=== PATIENT | male | born 1975 | race Caucasian/White ===

== ENCOUNTER 2016-09-05 08:11 | Emergency (ER) | payer OTHER ==
[~2016-09-05] VITALS: Wt 122.4 kg
[~2016-09-05 08:11] MED LIST: CYCL-319 PO; HYDR-3498 PO; HYDR-762 PO; IBUP800T25 PO; NAPR-260 PO
[2016-09-05] MEDS ORDERED: ERYTOPOI LEFT EYE (08:37)
--- NOTE | 2016-09-05 08:42 | ERD ---
ER Documentation Chief Complaint Date/Time DATE: 09/05/16 TIME: 08:39 Chief Complaint LEFT EYE SWELLING AND REDNESS FOR THE PAST 24 HRS. NO DISTRESS HPI This is a 41-year-old male presenting to the emergency department complaining of left lower eyelid swelling and redness for the past day. Patient states that last night he started feeling pain when he would press under his left lower eyelid. Patient rates the pain minimal with touch. Patient states that he sees a bump inside his left lower eyelid. Patient denies any vision changes , significant pain, foreign body. ROS All systems reviewed and are negative except as per history of present illness. Medications Home Meds Active Scripts Erythromycin* (Erythromycin* Ophthalmic) 1 Applic Oint, 1 APPLIC LEFT EYE QID for 7 Days, EA Prov:JENNY BRASHER PA-C 09/05/16 Ibuprofen* (Motrin*) 800 Mg Tab, 800 MG PO Q6H Y for PAIN AND OR ELEVATED TEMP, #30 TAB Prov:SARBJIT HERNÁNDEZ MD 10/29/15 Naproxen* (Naprosyn*) 500 Mg Tablet, 500 MG PO BID Y for PAIN AND/OR INFLAMMATION, #30 TAB Prov:ALEX MEDEROS PA-C 08/19/15 Cyclobenzaprine Hcl* (Cyclobenzaprine Hcl*) 10 Mg Tablet, 10 MG PO TID, #15 TAB Prov:ALEX MEDEROS PA-C 08/19/15 Hydrocodone Bit-Acetaminophen* ([place]*) 10-325 Mg Tablet, 1 TAB PO Q6 Y for PAIN , #10 TAB Prov:ALEX MEDEROS PA-C 08/19/15 Hydrocodone Bit-Acetaminophen* ([place]*) 5-325 Mg Tab, 1 TAB PO Q6 Y for PAIN, # 30 TAB Prov:GIANNA TRAVIS DO 06/20/15 Ibuprofen* (Motrin*) 800 Mg Tab, 800 MG PO Q6H Y for PAIN AND OR ELEVATED TEMP, #30 TAB Prov:GIANNA TRAVIS DO 06/20/15 Allergies Allergies: Coded Allergies: No Known Allergy (Unverified , 10/29/15) PMhx/Soc History of Surgery: No Anesthesia Reaction: No Hx Neurological Disorder: No Hx Respiratory Disorders: No Hx Cardiac Disorders: No Hx Psychiatric Problems: No Hx Miscellaneous Medical Probl: No Hx Alcohol Use: Yes (occassional) Hx Substance Use: No Hx Tobacco Use: Yes Physical Exam Vitals Vital Signs Date Time Temp Pulse Resp B/P Pulse Ox O2 Delivery O2 Flow Rate FiO2 09/05/16 08:13 98.5 81 20 170/89 97 Physical Exam General: WD/WN, in no apparent distress, non-toxic appearing HENT: NC/AT EYES: Left lower eyelid mild swelling, papules noted in the left or right eyelid Conjunctiva normal, no icterus Extraocular muscles intact, pupils equal and reactive to light with consensual response Negative Gosia test NECK: Supple; no LAD PULM: Normal labored breathing CV: RRR Good capillary refill GI: Non-distended, no guarding BACK: No masses EXT: No clubbing, cyanosis, or edema NEURO: Moves on all fours SKIN: intact PSYCH: Normal mood Procedures/MDM This is a 41-year-old male presenting to the emergency room complaining of left lower eyelid swelling and redness for the past day. On examination patient had left lower eyelid blepharitis with a small stye noted. There was no evidence of periorbital cellulitis, orbital cellulitis,corneal abrasion, corneal ulcer, glaucoma, anterior uveitis, and other ophthalmologic emergencies. I discussed with patient to do warm compresses 3 times a day and a prescription for erythromycin ointment was given. I discussed to follow-up with an checkroom chief within couple days DISPOSITION: Stable. Prescriptions given. Discussed to return to the ER if condition worsens or not improving as expected. Patient understoon and agreed with this plan. Departure Diagnosis: Primary Impression: Blepharitis Blepharitis type: unspecified type Laterality: left Eyelid: lower Qualified Code: H01.005 - Blepharitis of left lower eyelid, unspecified type Additional Impression: Stye Laterality: left Eyelid: lower Qualified Code: H00.015 - Hordeolum externum of left lower eyelid Condition: Stable Patient Instructions: What Is Blepharitis?, Treating Blepharitis: Self-Care, Treating Blepharitis: Medication and Follow-Up, When Your Child Has a Stye, Blepharitis Additional Instructions: FOLLOW UP WITH YOUR PRIMARY CARE PHYSICIAN TOMORROW.Return to this facility if you are not improving as expected. Take all medicines as directed. Return to this facility if you are not improving as expected. JENNY BRASHER PA-C Sep 05, 2016 08:42
== END 2016-09-05 09:13 | disposition home or self-care (01) ==
LOC: FTE 08:11
DX: H01.005 Unspecified blepharitis left lower eyelid (principal); H00.015 Hordeolum externum left lower eyelid; Z87.891 Personal history of nicotine dependence
CPT/HCPCS: 99283

== ENCOUNTER 2016-11-16 11:53 | Emergency (ER) | payer OTHER ==
[~2016-11-16] VITALS: Ht 162.6 cm; Wt 126.5 kg
[~2016-11-16 11:53] MED LIST changes: +ERYTOPOI LEFT EYE
[2016-11-16 11:54] VITALS: Ht 162.6 cm; Wt 126.5 kg
[2016-11-16 12:27] VITALS: BP 171/97
[2016-11-16] MEDS ORDERED: IBUPROFEN 800 MG TAB PO ONE (13:30)
--- NOTE | 2016-11-16 14:09 | RADRPT ---
PROCEDURE: XR Left Shoulder. CLINICAL INDICATION: Left shoulder pain. TECHNIQUE: Three views. Frontal internal rotation, frontal external rotation, and scapular Y-view . COMPARISON: No prior study is available for comparison. FINDINGS: There is no fracture or dislocation. The soft tissues are normal. Articular surfaces are intact. There is no lytic or blastic lesion. There is no radiopaque foreign body. IMPRESSION: 1. Normal images of the left shoulder. RPTAT: QQ .Jose Kern MD, MD Date Time Electronically viewed and signed by .Jose Kern MD, MD on 11/16/2016 14:09 .R/
--- NOTE | 2016-11-16 14:25 | ERD ---
ER Documentation Chief Complaint Date/Time DATE: 11/16/16 TIME: 14:23 Chief Complaint shoulder pain HPI This a 41-year-old male who presents the emergency department today complaining of left shoulder pain for the past 3-4 months. States that he has pain when he sleeps at night and when he "works out". 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 States he does not want to see his primary care doctor because "they do not do anything for him". States he wants a CT or MRI. Denies any fevers or chills. Denies any specific trauma. States he has not taken any medication for the pain. ROS All systems reviewed and are negative except as per history of present illness. Medications Home Meds Active Scripts Acetaminophen* (Tylophen*) 500 Mg Capsule, 1 CAP PO Q6H Y for PAIN AND OR ELEVATED TEMP, #30 CAP Prov:ANGELO GRAVES PA-C 11/16/16 Naproxen* (Naprosyn*) 500 Mg Tablet, 500 MG PO BID Y for PAIN AND/OR INFLAMMATION, #30 TAB Prov:ANGELO GRAVES PA-C 11/16/16 Erythromycin* (Erythromycin* Ophthalmic) 1 Applic Oint, 1 APPLIC LEFT EYE QID for 7 Days, EA Prov:JENNY BRASHER PA-C 09/05/16 Ibuprofen* (Motrin*) 800 Mg Tab, 800 MG PO Q6H Y for PAIN AND OR ELEVATED TEMP, #30 TAB Prov:SARBJIT HERNÁNDEZ MD 10/29/15 Naproxen* (Naprosyn*) 500 Mg Tablet, 500 MG PO BID Y for PAIN AND/OR INFLAMMATION, #30 TAB Prov:ALEX MEDEROS PA-C 08/19/15 Cyclobenzaprine Hcl* (Cyclobenzaprine Hcl*) 10 Mg Tablet, 10 MG PO TID, #15 TAB Prov:ALEX MEDEROS PA-C 08/19/15 Hydrocodone Bit-Acetaminophen* ([place]*) 10-325 Mg Tablet, 1 TAB PO Q6 Y for PAIN , #10 TAB Prov:ALEX MEDEROS PA-C 08/19/15 Hydrocodone Bit-Acetaminophen* ([place]*) 5-325 Mg Tab, 1 TAB PO Q6 Y for PAIN, # 30 TAB Prov:GIANNA TRAVIS DO 06/20/15 Ibuprofen* (Motrin*) 800 Mg Tab, 800 MG PO Q6H Y for PAIN AND OR ELEVATED TEMP, #30 TAB Prov:GIANNA TRAVIS DO 06/20/15 Allergies Allergies: Coded Allergies: No Known Allergy (Unverified , 10/29/15) PMhx/Soc History of Surgery: No Anesthesia Reaction: No Hx Neurological Disorder: No Hx Respiratory Disorders: No Hx Cardiac Disorders: No Hx Psychiatric Problems: No Hx Miscellaneous Medical Probl: No Hx Alcohol Use: Yes (occassional) Hx Substance Use: No Hx Tobacco Use: Yes Smoking Status: Current every day smoker Physical Exam Vitals Vital Signs Date Time Temp Pulse Resp B/P Pulse Ox O2 Delivery O2 Flow Rate FiO2 11/16/16 12:27 171/97 11/16/16 11:54 98.1 89 178/111 99 Physical Exam Const: No acute distress Head: Atraumatic Eyes: Normal Conjunctiva ENT: Normal External Ears, Nose and Mouth. Neck: Full range of motion..~ No meningismus. Resp: Clear to auscultation bilaterally Cardio: Regular rate and rhythm, no murmurs Skin: No petechiae or rashes MSK: Left shoulder with no obvious deformity. No effusion. No ecchymosis. No erythema or warmth. Full active range of motion. Positive Rosales sign. Negative empty can. Pulses 2+. Distal neurovascularly intact. Neur: Awake and alert Psych: Normal Mood and Affect Results 24 hrs Current Medications Medications (Trade) Dose Ordered Sig/Chau Route PRN Reason Start Time Stop Time Status Last Admin Dose Admin Ibuprofen (Motrin) 800 mg ONCE ONCE PO 11/16/16 13:30 11/16/16 13:31 DC 11/16/16 14:10 DIAGNOSTIC IMAGING REPORT Patient: LISSETTE AGUILAR : 1975 Age: 41 Sex: M MR #: [id number] DOS: 11/16/16 0000 Ordering MD: ANGELO GRAVES PA-C Location: [facility] Room/Bed: PROCEDURE: XR Left Shoulder. CLINICAL INDICATION: Left shoulder pain. TECHNIQUE: Three views. Frontal internal rotation, frontal external rotation , and scapular Y-view. COMPARISON: No prior study is available for comparison. FINDINGS: There is no fracture or dislocation. The soft tissues are normal. Articular surfaces are intact. There is no lytic or blastic lesion. There is no radiopaque foreign body. IMPRESSION: 1. Normal images of the left shoulder. RPTAT: QQ .Jose Kern MD, MD Date Time Electronically viewed and signed by .Jose Kern MD, MD on 11/16/2016 14:09 .R/ CC: ANGELO GRAVES PA-C Procedures/[facility] This is a 41-year-old male who presents the emergency department today complaining of left shoulder pain for the past 3-4 months. Patient indicated that he used to work here and he is requesting a CT or MRI. Patient had indicated that he did not want to see his primary care doctor because "they do not do anything for him". I have explained to him that a CT and MRI is not indicated given his physical exam. When I walked into the patient's room he was laying on his back with both of his hands behind his head. He has full active range of motion. His physical exam is most consistent with impingement syndrome versus labral pathology versus rotator cuff tendinopathy.. I spent a significant amount of time discussing this with the patient. I did agree to an x-ray so that he could follow-up with his primary care doctor. I explained to the patient that he needs to stop lifting overhead weights as he has been lifting upwards of 250 pounds. I explained to him that he needs to rest. Patient states "I am not going to do that". I have also explained to the patient is noncompliance will not help with his pain. 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 Left shoulder shows normal images of the left shoulder there is no fracture dislocation. Soft tissues are normal. Articular surfaces are intact. There is no lytic or blastic lesion there is no radiopaque foreign body. Patient symptoms at this time is consistent with tendinitis and impingement versus muscle strain versus labral pathology versus rotator cuff tendinopathy that is chronic likely secondary to body building and lifting heavy weights. Patient was given Motrin here in the emergency department. He will be given a prescription for Tylenol and Naprosyn for home. At this time the patient is stable for discharge and outpatient management. Patient should follow up with their PCP in the next 1-2 days. They may return to the emergency department sooner for any persistent or worsening of symptoms. Patient understood and agreed with the plan. Departure Diagnosis: Primary Impression: Shoulder pain Laterality: left Chronicity: chronic Qualified Code: M25.512 - Chronic left shoulder pain Condition: Fair ANGELO GRAVES PA-C Nov 16, 2016 14:25
[2016-11-16] MEDS ORDERED: NAPR-260 PO (14:26)
[2016-11-16] MEDS ORDERED: ACET500C5 PO (14:26)
== END 2016-11-16 14:51 | disposition home or self-care (01) ==
LOC: FTE 11:53
DX: M25.512 Pain in left shoulder (principal); F17.210 Nicotine dependence, cigarettes, uncomplicated
CPT/HCPCS: 73030; Z7502; Z7610

== ENCOUNTER 2016-12-18 09:56 | Emergency (ER) | payer OTHER ==
[~2016-12-18] VITALS: Ht 170.2 cm; Wt 122.0 kg
[~2016-12-18 09:56] MED LIST changes: +ACET500C5 PO
[2016-12-18 09:58] VITALS: Ht 170.2 cm; Wt 122.0 kg
[2016-12-18] MEDS ORDERED: KETO5DRO58 OP (10:14)
--- NOTE | 2016-12-18 13:09 | ERD ---
ER Documentation Chief Complaint Date/Time DATE: 12/18/16 TIME: 13:06 Chief Complaint RT EYE ITCHING ,TOOTH PAIN RT SIDE HPI This patient is a 41-year-old male presenting to the emergency department with complaints of pruritus of the right eye as well as lower molar right-sided pain. He had a dental procedure proximally 1 week ago. Symptoms are worsening. Symptoms are currently moderate in severity. He denies fevers, chills, or other symptoms currently. ROS All systems reviewed and are negative except as per history of present illness. Medications Home Meds Active Scripts Ketotifen Fumarate (ZADITOR) 5 Ml Drops, 5 ML OP BID, #1 BOTTLE Prov:THEE SHERMAN PA-C 12/18/16 Acetaminophen* (Tylophen*) 500 Mg Capsule, 1 CAP PO Q6H Y for PAIN AND OR ELEVATED TEMP, #30 CAP Prov:ANGELO GRAVES PA-C 11/16/16 Naproxen* (Naprosyn*) 500 Mg Tablet, 500 MG PO BID Y for PAIN AND/OR INFLAMMATION, #30 TAB Prov:ANGELO GRAVES PA-C 11/16/16 Erythromycin* (Erythromycin* Ophthalmic) 1 Applic Oint, 1 APPLIC LEFT EYE QID for 7 Days, EA Prov:JENNY BRASHER PA-C 09/05/16 Ibuprofen* (Motrin*) 800 Mg Tab, 800 MG PO Q6H Y for PAIN AND OR ELEVATED TEMP, #30 TAB Prov:SARBJIT HERNÁNDEZ MD 10/29/15 Naproxen* (Naprosyn*) 500 Mg Tablet, 500 MG PO BID Y for PAIN AND/OR INFLAMMATION, #30 TAB Prov:ALEX MEDEROS PA-C 08/19/15 Cyclobenzaprine Hcl* (Cyclobenzaprine Hcl*) 10 Mg Tablet, 10 MG PO TID, #15 TAB Prov:ALEX MEDEORS PA-C 08/19/15 Hydrocodone Bit-Acetaminophen* ([place]*) 10-325 Mg Tablet, 1 TAB PO Q6 Y for PAIN , #10 TAB Prov:ALEX MEDEROS PA-C 08/19/15 Hydrocodone Bit-Acetaminophen* ([place]*) 5-325 Mg Tab, 1 TAB PO Q6 Y for PAIN, # 30 TAB Prov:GIANNA TRAVIS DO 06/20/15 Ibuprofen* (Motrin*) 800 Mg Tab, 800 MG PO Q6H Y for PAIN AND OR ELEVATED TEMP, #30 TAB Prov:GIANNA TRAVIS DO 06/20/15 Allergies Allergies: Coded Allergies: No Known Allergy (Unverified , 10/29/15) PMhx/Soc Medical and Surgical Hx: pt denies Medical Hx, pt denies Surgical Hx History of Surgery: No Anesthesia Reaction: No Hx Neurological Disorder: No Hx Respiratory Disorders: No Hx Cardiac Disorders: No Hx Psychiatric Problems: No Hx Miscellaneous Medical Probl: No Hx Alcohol Use: Yes (occassional) Hx Substance Use: No Hx Tobacco Use: Yes Smoking Status: Current every day smoker Physical Exam Vitals Vital Signs Date Time Temp Pulse Resp B/P Pulse Ox O2 Delivery O2 Flow Rate FiO2 12/18/16 09:58 98.9 100 18 168/94 98 Physical Exam Const: Nontoxic, well-appearing male in no acute distress. Head: Atraumatic Eyes: Mild conjunctival injection noted to the right eye but no discharge. Bilateral EOMI. ENT: Normal External Ears, Nose and Mouth. Poor dentition. The patient is status post tooth extraction in the right lower molar area. Gingivitis noted. Possible early dental abscess noted to the right lower molar area. Neck: Full range of motion..~ No meningismus. Resp: No signs of acute respiratory distress. No retractions noted. Skin: No petechiae or rashes Back: No midline or flank tenderness Ext: No cyanosis, or edema Neur: Awake and alert Psych: Normal Mood and Affect Procedures/MDM 40-year-old male presents to the emergency department with complaints of right eye pruritus and dental pain. Physical examination is concerning for possible early dental abscess however the patient is [place] taking amoxicillin which he started yesterday. He was advised to continue taking this medication. There is some conjunctival injection noted to the right eye but bilateral EOMI. This is consistent with possible allergic conjunctivitis. The patient is stable for outpatient management with a prescription for Zaditor eyedrops. The patient understands and agrees with the discharge plan of diagnosis. Close follow-up with primary care physician and the patient's dentist was advised. Strict ER return precautions were discussed. Departure Diagnosis: Primary Impression: Toothache Additional Impression: Conjunctivitis Condition: Fair Patient Instructions: Conjunctivitis, Non-Specific Referrals: [facility] Additional Instructions: Follow up with your PCP within the next 1-3 days for a repeat evaluation. If you require a referral to a specialist, your Primary Care Provider may be able to provide this for you. In most patient cases, a referral is not required. If you have further questions regarding this matter, please ask your Primary Care Provider. Return the the emergency department immediately if symptoms worsen or change. If you have any questions regarding medications, ask your pharmacist or us before you leave. If any adverse reactions, occur while taking your medications, discontinue the treatment and return to the emergency department immediately. If any new or worsening symptoms, uncontrolled fevers, or other unexplained symptoms occur, return to the emergency department immediately. Take your medications as directed, and complete the entire course of treatment. THEE SHERMAN PA-C Dec 18, 2016 13:09
== END 2016-12-18 10:43 | disposition home or self-care (01) ==
LOC: FTE 09:56
DX: K08.89 Other specified disorders of teeth and supporting structures (principal); H10.9 Unspecified conjunctivitis; F17.210 Nicotine dependence, cigarettes, uncomplicated
CPT/HCPCS: 99283

== ENCOUNTER 2017-01-17 03:34 | Emergency (ER) | payer OTHER ==
[~2017-01-17 03:34] MED LIST changes: +KETO5DRO71 OP
[2017-01-17] MEDS ORDERED: KETOROLAC 30 MG INJ ONE (05:21)
[2017-01-17] MEDS ORDERED: DEXAMETHASONE 10 MG/ML 1 ML INJ ONE (05:21)
--- NOTE | 2017-01-25 16:19 | ERD ---
ER Documentation Chief Complaint Date/Time DATE: 01/25/17 TIME: 16:17 Chief Complaint HPI This patient is a 41-year-old male presenting to the emergency department with complaints of acute on chronic exacerbation of his right shoulder pain. Symptoms are worse when lifting weights or heavy objects. He does report mild pain in the left shoulder as well. Symptoms are worsening. Symptoms are constant. He rates symptoms an 8 out of 10 on the pain scale. No other symptoms reported. He has had a recent negative x-rays of the shoulders bilaterally. ROS All systems reviewed and are negative except as per history of present illness. Medications Home Meds Active Scripts Ketotifen Fumarate (ZADITOR) 5 Ml Drops, 5 ML OP BID, #1 BOTTLE Prov:THEE SHERMAN PA-C 12/18/16 Acetaminophen* (Tylophen*) 500 Mg Capsule, 1 CAP PO Q6H Y for PAIN AND OR ELEVATED TEMP, #30 CAP Prov:ANGELO GRAVES PA-C 11/16/16 Naproxen* (Naprosyn*) 500 Mg Tablet, 500 MG PO BID Y for PAIN AND/OR INFLAMMATION, #30 TAB Prov:ANGELO GRAVES PA-C 11/16/16 Erythromycin* (Erythromycin* Ophthalmic) 1 Applic Oint, 1 APPLIC LEFT EYE QID for 7 Days, EA Prov:JENNY BRASHER PA-C 09/05/16 Ibuprofen* (Motrin*) 800 Mg Tab, 800 MG PO Q6H Y for PAIN AND OR ELEVATED TEMP, #30 TAB Prov:SARBJIT HERNÁNDEZ MD 10/29/15 Naproxen* (Naprosyn*) 500 Mg Tablet, 500 MG PO BID Y for PAIN AND/OR INFLAMMATION, #30 TAB Prov:ALEX MEDEROS PA-C 08/19/15 Cyclobenzaprine Hcl* (Cyclobenzaprine Hcl*) 10 Mg Tablet, 10 MG PO TID, #15 TAB Prov:ALEX MEDEROS PA-C 08/19/15 Hydrocodone Bit-Acetaminophen* ([place]*) 10-325 Mg Tablet, 1 TAB PO Q6 Y for PAIN , #10 TAB Prov:ALEX MEDEROS PA-C 08/19/15 Hydrocodone Bit-Acetaminophen* ([place]*) 5-325 Mg Tab, 1 TAB PO Q6 Y for PAIN, # 30 TAB Prov:GIANNA TRAVIS DO 06/20/15 Ibuprofen* (Motrin*) 800 Mg Tab, 800 MG PO Q6H Y for PAIN AND OR ELEVATED TEMP, #30 TAB Prov:GIANNA TRAVIS DO 06/20/15 Allergies Allergies: Coded Allergies: No Known Allergy (Unverified , 10/29/15) PMhx/Soc History of Surgery: No Anesthesia Reaction: No Hx Neurological Disorder: No Hx Respiratory Disorders: No Hx Cardiac Disorders: No Hx Psychiatric Problems: No Hx Miscellaneous Medical Probl: No Hx Alcohol Use: Yes (occassional) Hx Substance Use: No Hx Tobacco Use: Yes Physical Exam Physical Exam Const: Nontoxic, well-appearing obese male in no acute distress. Head: Atraumatic Eyes: Normal Conjunctiva ENT: Normal External Ears, Nose and Mouth. Neck: Full range of motion..~ No meningismus. Resp: Clear to auscultation bilaterally Cardio: Regular rate and rhythm, no murmurs Abd: Soft, non tender, non distended. Normal bowel sounds Skin: No petechiae or rashes Back: No midline or flank tenderness Ext: There is mild subjective tenderness over the right and left shoulders over the anterior joint line. Full range of motion actively and passively in bilateral shoulders. Neur: Awake and alert Psych: Normal Mood and Affect Results 24 hrs Current Medications Medications (Trade) Dose Ordered Sig/Chau Route PRN Reason Start Time Stop Time Status Last Admin Dose Admin Ketorolac Tromethamine (Toradol) 30 mg STK-MED ONCE .ROUTE 01/17/17 05:21 01/17/17 09:11 DC Dexamethasone (Decadron) 10 mg STK-MED ONCE .ROUTE 01/17/17 05:21 01/17/17 09:11 DC Procedures/MDM 41-year-old male presents to the emergency department with complaints of acute on chronic right shoulder pain. X-rays recently approximately 2 months ago in the department were negative for acute fracture. He had no recent trauma. I do not feel that repeat imaging was necessary at this time, he was treated in the with IM Toradol and IM Decadron. He was feeling improved on reevaluation. I have low suspicion for fracture or other emergent conditions. The patient is stable for outpatient management. He is to return immediately for any new or worsening symptoms. Close follow-up with primary care physician was advised. Departure Diagnosis: Primary Impression: Chronic shoulder pain Condition: THEE Nelson PA-C Jan 25, 2017 16:19
== END 2017-01-17 05:31 | disposition home or self-care (01) ==
LOC: FTE 03:34
DX: M25.511 Pain in right shoulder (principal)
CPT/HCPCS: 96372; J1100; J1885; Z7502

== ENCOUNTER 2017-02-19 05:32 | Emergency (ER) | payer OTHER ==
[~2017-02-19] VITALS: Ht 167.6 cm; Wt 129.0 kg
[2017-02-19 05:35] VITALS: Ht 167.6 cm; Wt 129.0 kg
[2017-02-19] MEDS ORDERED: BEN50 PO ×2 (06:26→06:32)
[2017-02-19] MEDS ORDERED: CARB15SO5 MM ×2 (06:26→06:32)
[2017-02-19] MEDS ORDERED: KETO5DRO71 OP ×2 (06:26→06:32)
--- NOTE | 2017-02-19 07:20 | ERD ---
ER Documentation Chief Complaint Date/Time DATE: 02/19/17 TIME: 07:13 Chief Complaint mouth sore under the tongue for 2 mos HPI 41-year-old male complaining of mouth sores 2 months. Patient states that that he has not used medication on sores. Sores come and go however have consistently been present for 2 months. States he has been under more stress than usual. He has been smoking more than normal and having difficulty sleeping. He has gained weight. Patient uses steroids for muscle building and body bulking. No sick contacts. ROS All systems reviewed and are negative except as per history of present illness. Medications Home Meds Active Scripts Carbamide Peroxide (Gly-Oxide) 15 Ml Solution, 15 ML MM DAILY, #1 BOTTLE Prov:ALEX MEDEROS PA-C 02/19/17 Diphenhydramine Hcl* (Benadryl*) 50 Mg Cap, 50 MG PO Q6 Y for SLEEP, #30 CAP Prov:ALEX MEDEROS PA-C 02/19/17 Ketotifen Fumarate (ZADITOR) 5 Ml Drops, 5 ML OP BID, #1 BOTTLE Prov:ALEX MEDEROS PA-C 02/19/17 Ketotifen Fumarate (ZADITOR) 5 Ml Drops, 5 ML OP BID, #1 BOTTLE Prov:THEE SHERMAN PA-C 12/18/16 Acetaminophen* (Tylophen*) 500 Mg Capsule, 1 CAP PO Q6H Y for PAIN AND OR ELEVATED TEMP, #30 CAP Prov:ANGELO GRAVES PA-C 11/16/16 Naproxen* (Naprosyn*) 500 Mg Tablet, 500 MG PO BID Y for PAIN AND/OR INFLAMMATION, #30 TAB Prov:ANGELO GRAVES PA-C 11/16/16 Erythromycin* (Erythromycin* Ophthalmic) 1 Applic Oint, 1 APPLIC LEFT EYE QID for 7 Days, EA Prov:JENNY BRASHER PA-C 09/05/16 Ibuprofen* (Motrin*) 800 Mg Tab, 800 MG PO Q6H Y for PAIN AND OR ELEVATED TEMP, #30 TAB Prov:SARBJIT HERNÁNDEZ MD 10/29/15 Naproxen* (Naprosyn*) 500 Mg Tablet, 500 MG PO BID Y for PAIN AND/OR INFLAMMATION, #30 TAB Prov:ALEX MEDEROS PA-C 08/19/15 Cyclobenzaprine Hcl* (Cyclobenzaprine Hcl*) 10 Mg Tablet, 10 MG PO TID, #15 TAB Prov:ALEX MEDEROS PA-C 08/19/15 Hydrocodone Bit-Acetaminophen* (Honor*) 10-325 Mg Tablet, 1 TAB PO Q6 Y for PAIN , #10 TAB Prov:ALEX MEDEROS PA-C 08/19/15 Hydrocodone Bit-Acetaminophen* (Honor*) 5-325 Mg Tab, 1 TAB PO Q6 Y for PAIN, # 30 TAB Prov:GIANNA TRAVIS DO 06/20/15 Ibuprofen* (Motrin*) 800 Mg Tab, 800 MG PO Q6H Y for PAIN AND OR ELEVATED TEMP, #30 TAB Prov:GIANNA TRAVIS DO 06/20/15 Allergies Allergies: Coded Allergies: No Known Allergy (Unverified , 10/29/15) PMhx/Soc Medical and Surgical Hx: pt denies Medical Hx, pt denies Surgical Hx History of Surgery: No Anesthesia Reaction: No Hx Neurological Disorder: No Hx Respiratory Disorders: No Hx Cardiac Disorders: No Hx Psychiatric Problems: No Hx Miscellaneous Medical Probl: No Hx Alcohol Use: Yes (occassional) Hx Substance Use: No Hx Tobacco Use: Yes Smoking Status: Current every day smoker Physical Exam Vitals Vital Signs Date Time Temp Pulse Resp B/P Pulse Ox O2 Delivery O2 Flow Rate FiO2 02/19/17 05:35 98.5 101 20 158/91 98 Physical Exam GENERAL: The patient is well-appearing, well-nourished, in no acute distress HEENT: Open sores noted to bottom of tongue bilaterally. No purulence. No bleeding. Normal dentition. No milky white discharge to the tongue. NECK: C-spine is soft and supple. There is no meningismus. There is no cervical lymphadenopathy. CHEST: Clear to auscultation bilaterally. There are no rales, wheezes or rhonchi. HEART: Regular rate and rhythm. No murmurs, clicks, rubs or gallops. No S3 or S4. Procedures/MDM MDM: I have low suspicion for bacterial or fungal infection within the oropharynx. Patient has had elevated stressors in life which I believe is causing a pH imbalance and attributed to aphthous ulcers. Patient's vital signs and exam is non-concerning. I recommended patient to follow-up with primary care within 1-2 days for close evaluation. Patient is told if symptoms change or worsen to return to the ER. Patient is also requesting a refill of Zaditor eyedrops. Patient is explained that he is having difficulty sleeping however did not feel that sleeping medication was indicated at this time. I recommended patient to take Benadryl to avoid use of sleeping pills. Departure Diagnosis: Primary Impression: Sore in mouth Condition: Stable Patient Instructions: Aphthous Ulcer Referrals: [facility] YOU HAVE RECEIVED A MEDICAL SCREENING EXAM AND THE RESULTS INDICATE THAT YOU DO NOT HAVE A CONDITION THAT REQUIRES URGENT TREATMENT IN THE EMERGENCY DEPARTMENT. FURTHER EVALUATION AND TREATMENT OF YOUR CONDITION CAN WAIT UNTIL YOU ARE SEEN IN YOUR DOCTORS OFFICE WITHIN THE NEXT 1-2 DAYS. IT IS YOUR RESPONSIBILITY TO MAKE AN APPOINTMENT FOR FOLOW-UP CARE. IF YOU HAVE A PRIMARY DOCTOR --you should call your primary doctor and schedule an appointment IF YOU DO NOT HAVE A PRIMARY DOCTOR YOU CAN CALL OUR PHYSICIAN REFERRAL HOTLINE AT IF YOU CAN NOT AFFORD TO SEE A PHYSICIAN YOU CAN CHOSE FROM THE FOLLOWING [facility] [address] [facility] [facility] [address] [facility] [facility] [address] [facility] [facility] [address] [facility] [facility] [address] [facility]. [facility]. [address] Additional Instructions: FOLLOW UP WITH YOUR PRIMARY CARE PHYSICIAN TOMORROW.Return to this facility if you are not improving as expected. ALEX MEDEROS PA-C Feb 19, 2017 07:20
== END 2017-02-19 07:07 | disposition home or self-care (01) ==
LOC: FTE 05:32
DX: K13.79 Other lesions of oral mucosa (principal); F17.210 Nicotine dependence, cigarettes, uncomplicated
CPT/HCPCS: 99283

== ENCOUNTER 2017-08-11 22:33 | Emergency (ER) | END 2017-08-12 00:30 | disposition home or self-care (01) ==

== ENCOUNTER 2017-10-13 11:44 | Emergency (ER) | END 2017-10-13 13:10 | disposition home or self-care (01) ==

== ENCOUNTER 2017-12-21 18:40 | Emergency (ER) | END 2017-12-21 20:49 | disposition home or self-care (01) ==

== ENCOUNTER 2018-01-21 18:26 | Inpatient (IN) | END 2018-01-25 13:39 | disposition home or self-care (01) | DRG 65 ==

== ENCOUNTER 2018-02-15 22:27 | Emergency (ER) | END 2018-02-16 00:11 | disposition left against medical advice (07) ==

== ENCOUNTER 2018-02-16 23:09 | Inpatient (IN) | END 2018-02-18 18:00 | disposition home or self-care (01) | DRG 558 ==

== ENCOUNTER 2018-02-24 17:59 | Emergency (ER) | END 2018-02-24 19:53 | disposition home or self-care (01) ==

== ENCOUNTER 2018-04-14 04:54 | Emergency (ER) | END 2018-04-14 07:48 | disposition home or self-care (01) ==

== ENCOUNTER 2018-11-23 22:05 | Emergency (ER) | payer OTHER ==
[~2018-11-23] VITALS: Ht 170.2 cm; Wt 123.8 kg
[~2018-11-23 22:05] MED LIST changes: -ACET500C5 PO; +AMLO-218 PO; -CYCL-319 PO; -ERYTOPOI LEFT EYE; -HYDR-3498 PO; -HYDR-762 PO; -IBUP800T25 PO; -KETO5DRO71 OP; +MULTI PO; -NAPR-260 PO
[2018-11-23 22:10] VITALS: Ht 170.2 cm; Wt 123.8 kg
--- NOTE | 2018-11-23 22:25 | ERD ---
ER Documentation Chief Complaint Chief Complaint chest discomfort HPI The patient is a 43-year-old male, presenting to the ER because of transient substernal/left-sided chest discomfort around 3 PM while he was sleeping on the chair. It only lasted for second, resolved when he got up and stretch himself. He had similar symptoms previously whenever he slept on this particular chair. He denies any chest pain now. He was seen by his primary care physician last month and was referred to project product manager due to abnormal EKG He denies fever, chills, neck pain, chest pain with vomiting/radiation/exertion/diaphoresis, dyspnea, abdominal pain, vomiting, dysuria, diarrhea. He smokes, denies drinking Medical history: Hypertension, history of hemorrhagic CVA, sleep apnea, anxiety Past surgical history: None ROS All systems reviewed and are negative except as per history of present illness. Medications Home Meds Active Scripts Amlodipine Besylate* (Norvasc*) 10 Mg Tablet, 10 MG PO DAILY, #30 TAB Prov:CONSTANZA STEPHEN DO 02/24/18 Reported Medications Multivitamins* (Theragran*) 1 Tab Tab, 1 TAB PO DAILY, TAB 02/17/18 Allergies Allergies: Coded Allergies: No Known Allergy (Unverified , 04/14/18) PMhx/Soc History of Surgery: Yes Anesthesia Reaction: No Hx Neurological Disorder: Yes (stroke) Hx Respiratory Disorders: Yes (sleep apnea) Hx Cardiac Disorders: Yes (HTN) Hx Psychiatric Problems: No Hx Miscellaneous Medical Probl: No Hx Alcohol Use: Yes (occasionally) Hx Substance Use: No Hx Tobacco Use: Yes (daily) Smoking Status: Current every day smoker Physical Exam Vitals Vital Signs Date Temp Pulse Resp B/P (MAP) Pulse Ox O2 O2 Flow FiO2 Time Delivery Rate 11/23/18 98.7 103 16 146/78 97 22:10 (100) Physical Exam Const: No acute distress. Head: Atraumatic. Eyes: Normal Conjunctiva. ENT: Normal External Ears, Nose and Mouth. Neck: Full range of motion. No meningismus. Resp: Clear to auscultation bilaterally. Cardio: Regular rate and rhythm. Abd: Soft, non distended, normal bowel sounds, non tender. Skin: No petechiae or rashes. Back: No midline or flank tenderness. Ext: No cyanosis, or edema. Neur: Awake and alert. No focal deficit Psych: Normal Mood and Affect. Result Diagram: 11/23/18 2303 11/23/18 2303 Results 24 hrs Laboratory Tests Test 11/23/18 23:03 11/24/18 02:00 White Blood Count 7.7 10^3/ul Red Blood Count 4.88 10^6/ul Hemoglobin 15.0 g/dl Hematocrit 42.7 % Mean Corpuscular Volume 87.5 fl Mean Corpuscular Hemoglobin 30.7 pg Mean Corpuscular Hemoglobin Concent 35.1 g/dl Red Cell Distribution Width 13.1 % Platelet Count 195 10^3/UL Mean Platelet Volume 10.5 fl Immature Granulocytes % 0.300 % Neutrophils % 68.4 % Lymphocytes % 19.7 % Monocytes % 9.5 % Eosinophils % 1.3 % Basophils % 0.8 % Nucleated Red Blood Cells % 0.0 /100WBC Immature Granulocytes # 0.020 10^3/ul Neutrophils # 5.3 10^3/ul Lymphocytes # 1.5 10^3/ul Monocytes # 0.7 10^3/ul Eosinophils # 0.1 10^3/ul Basophils # 0.1 10^3/ul Nucleated Red Blood Cells # 0.0 10^3/ul Sodium Level 142 mmol/L Potassium Level 3.7 mmol/L Chloride Level 103 mmol/L Carbon Dioxide Level 29 mmol/L Anion Gap 10 Blood Urea Nitrogen 16 mg/dl Creatinine 1.33 mg/dl Est Glomerular Filtrat Rate mL/min 58 mL/min Glucose Level 115 mg/dl Calcium Level 9.0 mg/dl Troponin I 0.020 ng/ml 0.027 ng/ml Procedures/[place] [address] Radiology Main Line: [phone] DIAGNOSTIC IMAGING REPORT Patient: LISSETTE AGUILAR : 1975 Age: 43 Sex: M MR #: [id number] DOS: 11/23/18 2244 Ordering MD: STAS PARKER MD Location: E/R Room/Bed: PROCEDURE: XR Chest. CLINICAL INDICATION: Chest pain. TECHNIQUE: Single frontal view. COMPARISON: 04/14/2018. FINDINGS: The lungs are clear. The heart is mildly enlarged. There is no pleural effusion. There is no pneumothorax. IMPRESSION: 1. Mild cardiomegaly. 2. Otherwise unremarkable chest radiograph. RPTAT: QQ .Jose Kern MD, Date Time Electronically viewed and signed by .Jose Kern MD, MD on 11/23/2018 23:30 .R/ CC: STAS PARKER MD [id number] EK:12 PM read by emergency physician Rate/Rhythm: Normal Sinus Rhythm 100 beats/min QRS, ST, T-waves: No ST elevation, LPFB, prolong QT, inferolateral ST and T abnormality Impression: Abnormal EKG EK:12 PM read by emergency physician Rate/Rhythm: Normal Sinus Rhythm 85 beats/min QRS, ST, T-waves: No ST elevation, RAD, prolong QT, inferolateral ST and T abnormality Impression: Abnormal EKG MEDICAL MAKING DECISION: The patient is a 43-year-old male, presenting with chest pain of unclear etiology, denies any symptoms now, is stable for outpatient follow-up The differential diagnoses considered include but are not limited to acute coronary syndrome, acute myocardial infarction, pericarditis, pulmonary embolism, aortic dissection, pneumonia, pleural effusion, pneumothorax, GERD, chest wall pain. The patient presents with chest pain and I considered pulmonary embolism, aortic dissection, pneumothorax among other diagnoses. Evaluation for acute coronary syndrome was performed. The HEART score (www.mdcalc.com) was utilized for risk stratification and found to be <= 3. Repeat EKG and troponin @ 3 hours were unchanged. Based on this evaluation the patients risk of major adverse cardiac events is <1%. Shared decision making occurred with patient and the decision has been made to discharge the patient for outpatient evaluation and functional study within 72 hours. Departure Diagnosis: Primary Impression: Chest pain Condition: Good Comments I discussed the findings with the patient. I advised the patient to follow-up with your project product manager in about 1-2 days, sooner if needed and return if any concern. Disclaimer: Inadvertent spelling and grammatical errors are likely due to EHR/dictation software use and do not reflect on the overall quality of patient care. Also, please note that the electronic time recorded on this note does not necessarily reflect the actual time of the patient encounter. STAS PARKER MD Nov 23, 2018 22:25
[2018-11-24 03:02] VITALS: BP 132/90; PULSE 100; RESP 16
== END 2018-11-24 03:04 | disposition home or self-care (01) ==
LOC: E/R 22:05
DX: R07.89 Other chest pain (principal); R40.2142 Coma scale, eyes open, spontaneous, at arrival to emergency department; R40.2252 Coma scale, best verbal response, oriented, at arrival to emergency department; R40.2362 Coma scale, best motor response, obeys commands, at arrival to emergency department; I10 Essential (primary) hypertension; Z86.73 Personal history of transient ischemic attack (TIA), and cerebral infarction without residual deficits
CPT/HCPCS: 36415; 71045; 80048; 84484; 85025; 93005; Z7502

== ENCOUNTER 2019-01-07 02:33 | Inpatient (IN) | payer OTHER ==
[~2019-01-07] VITALS: Ht 170.2 cm; Wt 124.1 kg
[~2019-01-07 02:33] MED LIST changes: +IBUP-1542 PO; +POLY17PO6 PO
[2019-01-07] MEDS ORDERED: KETOROLAC 15 MG INJ IV STA (03:22)
[2019-01-07] MEDS ORDERED: BISACODYL 10 MG SUPP PR ONE (03:30)
[2019-01-07] MEDS ORDERED: ACETAMINOPHEN 325 MG TAB PO PRN ×2 (07:30→08:00)
[2019-01-07] MEDS ORDERED: ONDANSETRON 4 MG INJ IV PRN ×2 (07:30→08:00)
[2019-01-07] MEDS ORDERED: NACL 0.9% 3 ML SYG IV SCH (08:00)
[2019-01-07 08:30] VITALS: BP 165/93; PULSE 91; RESP 21
[2019-01-07] MEDS: DEXTROSE 5%-0.45% NACL 1,000 ML IV SCH ×2 (08:55→17:25)
[2019-01-07] MEDS: FAMOTIDINE 20 MG INJ IV SCH ×2 (08:55→20:15)
[2019-01-07] MEDS: morphine 2 MG INJ IV PRN ×3 (09:03→20:16)
[2019-01-07 10:30] VITALS: Ht 170.2 cm; Wt 124.1 kg
[2019-01-07] MEDS ORDERED: hydrALAzine 20 MG INJ IV PRN (10:30)
[2019-01-07 14:00] VITALS: BP 140/82; PULSE 61; RESP 17
[2019-01-07 20:05] VITALS: BP 152/91; PULSE 71; RESP 18
[2019-01-08] MEDS: morphine 2 MG INJ IV PRN ×3 (00:21→19:42)
[2019-01-08] MEDS: DEXTROSE 5%-0.45% NACL 1,000 ML IV SCH ×5 (01:40→20:38)
[2019-01-08 02:25] VITALS: BP 148/78; PULSE 86; RESP 18
[2019-01-08 08:00] VITALS: BP 141/93; PULSE 75; RESP 20
[2019-01-08] MEDS: FAMOTIDINE 20 MG INJ IV SCH ×2 (08:55→20:31)
[2019-01-08 14:00] VITALS: BP 146/81; PULSE 72; RESP 18
[2019-01-08 19:30] VITALS: BP 135/75; PULSE 65; RESP 16
[2019-01-09 02:00] VITALS: BP 133/80; PULSE 84; RESP 18
[2019-01-09] MEDS: DEXTROSE 5%-0.45% NACL 1,000 ML IV SCH (05:50)
[2019-01-09 08:00] VITALS: BP 144/96; PULSE 79; RESP 16
[2019-01-09] MEDS: FAMOTIDINE 20 MG INJ IV SCH (08:33)
[2019-01-09 13:39] VITALS: BP_SYST 138; BP_SYST 161; BP_DIAS 85; BP_DIAS 90; PULSE 83; RESP 19
== END 2019-01-09 15:44 | disposition home or self-care (01) | DRG 439 ==
LOC: E/R 02:33 → PP2 04:38
PROVIDERS: ADMIT Internal Medicine; ATTEND Internal Medicine
DX: K85.90 Acute pancreatitis without necrosis or infection, unspecified (principal); Z68.41 Body mass index [BMI] 40.0-44.9, adult; K59.00 Constipation, unspecified; K76.0 Fatty (change of) liver, not elsewhere classified; I10 Essential (primary) hypertension; F41.9 Anxiety disorder, unspecified; E66.9 Obesity, unspecified; Z71.3 Dietary counseling and surveillance; Z86.73 Personal history of transient ischemic attack (TIA), and cerebral infarction without residual deficits
CPT/HCPCS: 36415; 74150; 76705; 80053; 81003; 83690; 83735; 84100; 85025; 86704; 86709; 86803; 87340; 96374; J1885; J2270; J7042